=== PATIENT | female | born 1965 | race Caucasian/White ===

== ENCOUNTER 2017-09-26 12:56 | Emergency (ER) | payer MEDICARE, OTHER ==
--- NOTE | 2017-09-26 13:34 | RAD ---
PA AND LATERAL CHEST: History: Cough, shortness of breath. FINDINGS: Comparison made with exam of 02-02-14. The heart size is normal. The lungs are expanded. There is a small focal opacity in the right lower l bean. No pneumothoraces or pleural effusions are seen. Intraspinal leads are again noted . IMPRESSION: Probable right sided pneumonia. Follow up exam should be obtained after course of antibiotics. Code T POS: OTIS
[2017-09-26 13:45] LABS: #Basophils 0.1 thou/uL (0.0-0.2); #Eosinphils 0.2 thou/uL (0.0-0.7); #Lymphocytes 1.2 thou/uL (1.20-3.40); #Monocytes 0.5 thou/uL (0.11-0.59); #Neutrophils 6.5 thou/uL (1.40-6.50); %Basophils 0.9 % (0.0-1.0); %Eosinophils 2.2 % (0.0-10.0); %Lymphocytes 14.4 % (21.0-51.0); %Monocytes 6.1 % (0.0-10.0); %Neutrophils 76.4 % (42.0-75.0); Hemoglobin 14.7 g/dL (12.0-16.0); Mean Corpuscular HGB CONC 34.3 g/dL (32.0-36.0); Mean Corpuscular Hemoglobin 31.9 pg (27.0-31.0); Mean Corpuscular Volume 92.9 fl (81.0-99.0); Platelet Count 207 thou/uL (130-400); RBC Distribution Width 11.1 % (11.5-14.5); White Blood Cell (WBC) Count 8.5 thou/uL (4.8-10.8)
[2017-09-26] MEDS ORDERED: Ipratropium Bromide 2.5 ml Neb ONE (13:53)
[2017-09-26] MEDS ORDERED: Albuterol Sulfate 2.5 mg/0.5 ml Neb ONE (13:54)
[2017-09-26 14:00] LABS: ALT (SGPT) 23 U/L (8-55); AST (SGOT) 14 U/L (5-34); Albumin 4.1 g/dL (3.5-5.0); Alkaline Phosphatase 87 U/L (40-150); Anion Gap 13 mmol/L (10-20); BUN (Urea Nitrogen) 7 mg/dL (7.0-18.7); Bilirubin, Total 0.5 mg/dL (0.2-1.2); Calc. Creatinine Clearance 0 mL/min (70-130); Calcium 9.7 mg/dL (7.8-10.44); Carbon Dioxide 28 mmol/L (22-29); Chloride 103 mmol/L (98-107); Estimated GFR-MDRD 81; Globulin 3.1 g/dL (2.4-3.5); Glucose 159 mg/dL (70-105); Potassium 3.7 mmol/L (3.5-5.1); Protein, Total 7.2 g/dL (6.0-8.3); Sodium 140 mmol/L (136-145)
[2017-09-26] MEDS ORDERED: methylPREDNISolone Sod Succ/PF 125 MG/2 ML VIAL ONE (14:00)
[2017-09-26 14:03] LABS: CKMB 2.4 ng/mL (0-6.6); Troponin I Less than 0.010 ng/mL (< 0.028)
[2017-09-26] MEDS ORDERED: Azithromycin 250 MG TAB ONE (14:11)
[2017-09-26] MEDS ORDERED: cefTRIAXone\\ROCEPHIN 1 GM VIAL ONE (14:39)
[2017-09-26] MEDS ORDERED: Sodium Chloride 0.9% 100 ML ONE (14:41)
--- NOTE | 2017-11-03 15:48 | EKG ---
Test Reason : Blood Pressure : / mmHG Vent. Rate : 088 BPM Atrial Rate : 088 BPM P-R Int : 156 ms QRS Dur : 106 ms QT Int : 348 ms P-R-T Axes : 046 075 046 degrees QTc Int : 421 ms Normal sinus rhythm Incomplete right bundle branch block Borderline ECG Confirmed by YOMAIRA MONREAL D.O. ([id number]), staff editor ABNER BOYCE ([id number] on 11/03/2017 3:47:58 PM Referred By: Confirmed By:YOMAIRA MONREAL D.O.
== END 2017-09-26 16:00 | disposition home or self-care (01) ==
LOC: SCSER 12:56
DX: J18.9 Pneumonia, unspecified organism (principal); I10 Essential (primary) hypertension; F17.210 Nicotine dependence, cigarettes, uncomplicated
CPT/HCPCS: 36415; 71046; 80053; 82553; 83880; 84484; 85025; 93005; 94640; 96365; 96375; J0696; J2930; J7050; J7611; J7644

== ENCOUNTER 2017-10-04 14:10 | Outpatient (CLI) | payer MEDICARE, MEDICAID | END 2017-10-04 14:11 | disposition home or self-care (01) | LOC: BICMAMMO 14:10 | PROVIDERS: ATTEND Family Medicine | DX: Z12.31 Encounter for screening mammogram for malignant neoplasm of breast (principal); Z80.3 Family history of malignant neoplasm of breast | CPT/HCPCS: 77063; 77067 ==

== ENCOUNTER 2018-06-03 08:04 | Day surgery (SDC) | payer MEDICARE, MEDICAID ==
[2018-05-30 15:28] VITALS: BMI 39.9
[2018-06-03] MEDS ORDERED: Gabapentin 300 MG CAP PO SCH (08:30)
[2018-06-03] MEDS ORDERED: CEFAZOLIN 3 GM in Sodium Chloride 0.9% 100 ML IVPB SCH (08:30)
[2018-06-03] MEDS ORDERED: Famotidine/PF 20 mg/2ml Vial IVPB SCH (08:30)
[2018-06-03] MEDS ORDERED: Gabapentin 300 MG CAP ONE (08:49)
[2018-06-03] MEDS ORDERED: Famotidine/PF 20 mg/2ml Vial ONE (08:49)
[2018-06-03] MEDS ORDERED: Midazolam HCl 2 mg/2 ml Vial ONE (09:08)
[2018-06-03] MEDS ORDERED: Bupivacaine HCl 0.5%/Epinephrine 1:200,000/PF 30 ml Vial ONE ×2 (09:38→12:20)
[2018-06-03] MEDS ORDERED: Lidocaine 1% w/Epinephrine 1:100K 30 ML VIAL ONE (09:38)
[2018-06-03] MEDS ORDERED: Fentanyl 100 MCG/2 ML VIAL ONE ×4 (09:59→13:47)
[2018-06-03] MEDS ORDERED: Albuterol Sulfate 1.25 MG/3 ML NEB ONE (10:00)
[2018-06-03] MEDS ORDERED: Albuterol Sulfate 2.5 mg/3 ml Neb ONE (10:00)
[2018-06-03] MEDS ORDERED: Fluticasone Propionate Nasal Spray 16 gm Bottle NASAL PRN (10:02)
[2018-06-03] MEDS ORDERED: Albuterol Sulfate HFA (OR ONLY) ONE (10:12)
[2018-06-03] MEDS ORDERED: Ondansetron HCl/PF 4 MG/2 ML Vial IVP PRN ×2 (12:37→13:09)
[2018-06-03] MEDS ORDERED: HYDROmorphone 2 MG/ML VIAL SLOW IVP PRN (12:37)
[2018-06-03] MEDS ORDERED: Meperidine HCl/PF 25 MG/ML VIAL SLOW IVP PRN (12:37)
[2018-06-03] MEDS ORDERED: Promethazine HCl 25 MG/ML VIAL SLOW IVP PRN (12:37)
[2018-06-03] MEDS ORDERED: Promethazine HCl 25 MG/ML VIAL IM PRN ×2 (12:37→13:09)
[2018-06-03] MEDS ORDERED: oxyCODONE ER 20 MG TAB PO PRN (12:38)
[2018-06-03] MEDS ORDERED: HYDROcodone/Acetaminophen 10/325 mg Tablet PO PRN (12:38)
[2018-06-03] MEDS ORDERED: ALPRAZolam 1 MG TAB PO PRN (12:44)
[2018-06-03] MEDS ORDERED: Ropivacaine 0.2% 550 ML 550 ML NERVE BLCK SCH (12:54)
[2018-06-03] MEDS ORDERED: Acetaminophen 325 MG TAB PO PRN (13:09)
[2018-06-03] MEDS ORDERED: Zolpidem Tartrate 5 MG TAB PO PRN (13:09)
[2018-06-03] MEDS ORDERED: Simethicone Chewable 80 MG TAB PO PRN (13:09)
[2018-06-03] MEDS ORDERED: Morphine 4 MG/ML VIAL SLOW IVP PRN ×2 (13:09→16:51)
[2018-06-03] MEDS ORDERED: Bisacodyl 10 MG SUPP PR PRN (13:09)
[2018-06-03] MEDS ORDERED: diphenhydrAMINE 25 MG CAP PO PRN (13:09)
--- NOTE | 2018-06-03 14:24 | OP ---
DATE OF PROCEDURE: 06/03/2018 PREOPERATIVE DIAGNOSES: Cervical dysplasia with cervical intraepithelial neoplasia 2-3 with a history of a prior LEEP. POSTOPERATIVE DIAGNOSES: Cervical dysplasia with cervical intraepithelial neoplasia 2-3 with a history of a prior LEEP. PROCEDURE PERFORMED: Robotic assisted total laparoscopic hysterectomy with bilateral salpingo-oophorectomy. SURGEON: Nay Parekh D.O. BELLING MACHINE OPERATOR: Padmini Hassan M.D. COMPLICATIONS: None. ESTIMATED BLOOD LOSS: 100 mL. IV FLUIDS: 1600. URINE OUTPUT: 250 mL. FINDINGS: Normal appearing external genitalia, normal vaginal epithelium, normal appearing cervical epithelium with the exception of small erosive appearing area at 12 o'clock position, normal appearing uterus, fallopian tubes and ovaries bilaterally. INDICATIONS FOR THE PROCEDURE: Ms. Vizcarra is a 52-year-old G4, P3 who presented for consultation due to cervical dysplasia with ADRIANA 2-3 on colposcopy biopsy. The patient had a history of a prior LEEP and was counseled on treatment options including a repeat excisional procedure versus a hysterectomy. The patient very adamantly desired to have a hysterectomy. The patient does have comorbidities of obstructive sleep apnea, chronic tobacco use and COPD and obesity. She underwent a cardiac evaluation and received cardiac clearance. PROCEDURE IN DETAIL: The patient was brought to the operating room. She was placed under general anesthesia. The patient was placed in dorsal lithotomy position, her arms were tucked for robotic surgery. She was prepped and draped in a sterile fashion. An official timeout was performed and the patient received Ancef 3 gram dose. Single sided speculum was placed in the vagina. The anterior aspect of the cervix was grasped using single tooth tenaculum and the cervix was sequentially dilated using Brown dilators. The uterus was sounded to approximately 7 cm. A 6 cm length and 4 cm cup were used for the MAYRA manipulator. They were appropriately secured to the ectocervix. A Andrade catheter was placed. Gloves were exchanged and attention was turned to the abdominal portion. A supraumbilical incision was made using the scalpel and the Veress needle was inserted into the peritoneal cavity noting a normal pressure. The peritoneal cavity was insufflated using carbon dioxide. The patient was then placed in Trendelenburg position. The amount of Trendelenburg position was limited due to patient's obesity and respiratory status for appropriate ventilation. Once anesthesia was comfortable with the amount of Trendelenburg, the additional assistant professor of archaeology ports were placed. All were placed under direct visualization using local anesthetic. There were 2 right assistant professor of archaeology ports and 2 left assistant professor of archaeology ports. A third robotic arm was to be used for additional traction. The robot was then appropriately secured to the patient. The instruments were inserted. The hysterectomy was started on the left aspect. There were omental adhesions to the left ovary which were coagulated and transected. The left IP ligament was then identified, coagulated multiple times and transected. The broad ligament along the uteroovarian ligament was then transected using cautery towards the uterus. The left round ligament was then coagulated multiple times and transected allowing entrance into the broad ligament. The anterior leaf of the broad ligament was undermined and was transected to allow inferior flexion of the bladder on the left aspect. The left posterior peritoneum was undermined and transected towards the level of the uterosacral ligament. The left uterine vessels were further skeletonized. Attention was then turned over to the right aspect. The right ovary was elevated and the right IP ligament was identified and coagulated multiple times and transected. This is transected towards the uterus. The right round ligament was coagulated and transected allowing entry into the broad ligament on the right side. The anterior aspect of the broad ligament was undermined and transected to inferiorly reflect the bladder on the right aspect as well. The posterior leaf of the broad ligament was undermined and transected down towards the level of the uterosacral ligament on the right aspect skeletonized using the right uterine vessels. Skeletonization process was more difficult on the right side. However, it was able to be performed and hemostasis was achieved. The bladder was inferiorly reflected using both sharp and blunt dissection. The right uterine vessels were coagulated multiple times and then transected and the same was performed to the left aspect. The colpotomy was performed in a circumferential fashion and noting a blue manipulator cup and performed until the cervical and vaginal tissue were completely . The uterus, cervix, fallopian tubes, and ovaries were delivered vaginally. The pelvis was irrigated and cleared of all clot and debris. The vaginal cuff was closed in a running fashion using 1 Stratafix suture. The vaginal cuff was hemostatic after closure. Again, the pelvis was irrigated and cleared of all clot and debris. The ON-Q pump was then placed into the pelvis. The robotic instruments were removed and the robot was undocked from the patient. The patient was taken out of Trendelenburg position. Her abdomen was deflated and the trocars were removed. The 12 mm camera port was closed by closing the fascia using #0 Vicryl. All skin incisions were closed using 4-0 Monocryl and Dermabond. The patient tolerated the procedure well. There were no complications. All counts were correct x2. She will be transferred to PACU in stable condition. AMELIA
[2018-06-03] MEDS: Dextrose 5 %-0.45 % NaCl 1,000 ML IV SCH (17:01)
[2018-06-03] MEDS: Ibuprofen 800 MG TAB PO SCH ×2 (17:44→23:15)
[2018-06-03 17:53] VITALS: BP 171/82
[2018-06-03] MEDS ORDERED: HYDROcodone/Acetaminophen 10/325 mg Tablet PO SCH ×2 (18:00)
[2018-06-03] MEDS: HYDROcodone/Acetaminophen 10/325 mg Tablet PO SCH (18:52)
[2018-06-03] MEDS ORDERED: hydrALAZINE 10 MG TAB PO PRN (19:03)
[2018-06-03] MEDS ORDERED: Montelukast Sodium 10 mg Tablet PO SCH (21:00)
[2018-06-03] MEDS ORDERED: Amlodipine 5 MG TAB PO SCH (21:00)
[2018-06-03] MEDS ORDERED: Topiramate 100 MG TAB PO SCH (21:00)
[2018-06-04 01:08] VITALS: TEMP 98
[2018-06-04] MEDS: HYDROcodone/Acetaminophen 10/325 mg Tablet PO SCH ×2 (01:48→03:06)
[2018-06-04] MEDS: Dextrose 5 %-0.45 % NaCl 1,000 ML IV SCH ×2 (01:48→06:04)
[2018-06-04 05:52] LABS: #Monocytes 0.6 thou/uL (0.11-0.59); #Neutrophils 6.6 thou/uL (1.40-6.50); %Eosinophils 0.2 % (0.0-10.0); %Lymphocytes 12.2 % (21.0-51.0); %Monocytes 6.7 % (0.0-10.0); %Neutrophils 80.9 % (42.0-75.0); Hemoglobin 14.3 g/dL (12.0-16.0); Mean Corpuscular HGB CONC 34.5 g/dL (32.0-36.0); Mean Corpuscular Hemoglobin 32.1 pg (27.0-31.0); Mean Corpuscular Volume 92.9 fL (78.0-98.0); Mean Platelet Volume 7.3 fL (7.4-10.4); Platelet Count 183 thou/uL (130-400); RBC Distribution Width 12.1 % (11.5-14.5); Red Blood Cell (RBC) Count 4.44 mill/uL (4.20-5.40); White Blood Cell (WBC) Count 8.1 thou/uL (4.8-10.8)
[2018-06-04 05:58] LABS: Anion Gap 13 mmol/L (10-20); BUN (Urea Nitrogen) 10 mg/dL (7.0-18.7); Calc. Creatinine Clearance 146 mL/min (70-130); Calcium 9.1 mg/dL (7.8-10.44); Carbon Dioxide 24 mmol/L (22-29); Chloride 107 mmol/L (98-107); Estimated GFR-MDRD 77; Glucose 115 mg/dL (70-105); Potassium 4.1 mmol/L (3.5-5.1); Sodium 140 mmol/L (136-145)
[2018-06-04] MEDS: Ibuprofen 800 MG TAB PO SCH (06:04)
--- NOTE | 2018-06-04 11:22 | PRG ---
DATE OF SERVICE: 06/04/2018 HPI: Postoperative day #1, status post robotic-assisted total laparoscopic hysterectomy with a bilat eral salpingo-oophorectomy for history of cervical dysplasia with ADRIANA-2, status post LEEP. SUBJECTIVE: The patient reports [id number] pain. She is passing flatus, voiding without diffi culty, ambulating, and tolerating a regular diet. Her pain is controlled with her home medications, which she takes OxyContin and [place], prescribed by her primary physician for her chronic back pain. OBJECTIVE: VITAL SIGNS: Stable, her hypertension has improved after her pain has been controlled and she is les s anxious after surgery. GENERAL: In no acute distress. CARDIOVASCULAR: Regular rate and rhythm. RESPIRATORY: Unlabored. Clear to auscultation bilaterally. ABDOMEN: Soft, mild distention. Obese. Normal active bowel sounds x4. Incision is clean, dry, and intact with Dermabond, ON-Q pump appropriately secured in place. EXTREMITIES: No edema. Negative Homans'. LABORATORY DATA: Labs are appropriate for postop with normal hemoglobin and normal creatinine (pleas e see laboratory results). ASSESSMENT: Postoperative day #1, status post robot-assisted total laparoscopic hysterectomy with bi lateral salpingo-oophorectomy for cervical dysplasia. PLAN: The patient is meeting all requirements for discharge and will be discharged home today. She will resume her home pain medications as prescribed by her primary doctor and will have an ON-Q pain pump for her pain control.
--- NOTE | 2018-06-04 11:22 | DIS ---
DATE OF ADMISSION: 06/03/2018 DATE OF DISCHARGE: 06/04/2018 ADMISSION AND DISCHARGE PHYSICIAN: Nay Parekh DO ADMISSION DIAGNOSES: Pain control, status post robotic-assisted total laparoscopic hysterectomy with bilateral salpingo-oophorectomy due to history of chronic pain. DISCHARGE DIAGNOSES: Pain control, status post robotic-assisted total laparoscopic hysterectomy wi th bilateral salpingo-oophorectomy due to history of chronic pain. BRIEF HOSPITAL COURSE: Ms. Manda Vizcarra is a 52-year-old G4, P3 who has a history of cervical dysplasia, most recently with ADRIANA 2/3, who had a previous LEEP. She was counseled on treatment opti ons and elected to have a hysterectomy for treatment of her cervical dysplasia. The patient underwen t a robotic-assisted total laparoscopic hysterectomy with bilateral salpingo-oophorectomy, and she is now postoperative day #1. She is meeting all requirements for discharge. The patient is ambulating , voiding, passing flatus and her pain is controlled with her chronic pain medication regimen. She d id have hypertension yesterday evening, which was improved with a p.r.n. dose of hydralazine and decr ease anxiety after her family members left yesterday evening. MEDICATIONS: Resume chronic pain medications of [place] and OxyContin and continue home medications. DRAINS: ON-Q pain pump. DIET: Regular. ACTIVITY RESTRICTIONS: Pelvic rest, no heavy lifting, pulling or pushing x6 weeks. FOLLOWUP: Follow up in 2 weeks.
== END 2018-06-04 09:03 | disposition home or self-care (01) ==
LOC: SDC 08:04 → 3SE 14:05 → SDC 06-04 09:03
PROVIDERS: ATTEND Obstetrics & Gynecology
PROC: 0UT94ZZ Resection of Uterus, Percutaneous Endoscopic Approach (ICD-10-PCS; principal; 2018-06-03)
PROC: 0UT24ZZ Resection of Bilateral Ovaries, Percutaneous Endoscopic Approach (ICD-10-PCS; 2018-06-03)
PROC: 0UT74ZZ Resection of Bilateral Fallopian Tubes, Percutaneous Endoscopic Approach (ICD-10-PCS; 2018-06-03)
DX: D06.9 Carcinoma in situ of cervix, unspecified (principal); N80.0 Endometriosis of uterus; N83.8 Other noninflammatory disorders of ovary, fallopian tube and broad ligament; G47.33 Obstructive sleep apnea (adult) (pediatric); J44.9 Chronic obstructive pulmonary disease, unspecified; F17.210 Nicotine dependence, cigarettes, uncomplicated; I10 Essential (primary) hypertension; E66.9 Obesity, unspecified; Z68.39 Body mass index [BMI] 39.0-39.9, adult; Z79.899 Other long term (current) drug therapy; Z88.8 Allergy status to other drugs, medicaments and biological substances
CPT/HCPCS: 58571; 80048; 85025; 88307; 96374; A4306; 36415; 96375; 96376; J0131; J0670; J0690; J2001; J2250; J2270; J2405; J2795; J3010; J7050; J7611; S0028

== ENCOUNTER 2018-06-06 18:34 | Emergency (ER) | payer MEDICARE, MEDICAID ==
[~2018-06-06 18:34] MED LIST: ISOVUE-370 76%-LOCM 1 ML ONE
[2018-06-06] MEDS ORDERED: Lorazepam 2 MG/ML VIAL ONE (19:59)
[2018-06-06 20:04] LABS: #Basophils 0.1 thou/uL (0.0-0.2); #Eosinphils 0.2 thou/uL (0.0-0.7); #Lymphocytes 1.4 thou/uL (1.20-3.40); #Monocytes 0.4 thou/uL (0.11-0.59); #Neutrophils 4.5 thou/uL (1.40-6.50); %Basophils 0.9 % (0.0-1.0); %Eosinophils 3.3 % (0.0-10.0); %Lymphocytes 21.6 % (21.0-51.0); %Monocytes 6.1 % (0.0-10.0); %Neutrophils 68.1 % (42.0-75.0); Hemoglobin 14.6 g/dL (12.0-16.0); Mean Corpuscular HGB CONC 35.5 g/dL (32.0-36.0); Mean Corpuscular Hemoglobin 32.8 pg (27.0-31.0); Mean Corpuscular Volume 92.3 fL (78.0-98.0); Mean Platelet Volume 7.5 fL (7.4-10.4); Platelet Count 192 thou/uL (130-400); RBC Distribution Width 12.3 % (11.5-14.5); Red Blood Cell (RBC) Count 4.44 mill/uL (4.20-5.40); White Blood Cell (WBC) Count 6.6 thou/uL (4.8-10.8)
[2018-06-06 20:24] LABS: ALT (SGPT) 51 U/L (8-55); AST (SGOT) 27 U/L (5-34); Albumin 4.3 g/dL (3.5-5.0); Alkaline Phosphatase 72 U/L (40-150); Anion Gap 13 mmol/L (10-20); BUN (Urea Nitrogen) 14 mg/dL (7.0-18.7); Bilirubin, Total 0.7 mg/dL (0.2-1.2); Calc. Creatinine Clearance 0 mL/min (70-130); Calcium 9.1 mg/dL (7.8-10.44); Carbon Dioxide 23 mmol/L (22-29); Chloride 105 mmol/L (98-107); Estimated GFR-MDRD 79; Glucose 105 mg/dL (70-105); Potassium 4.2 mmol/L (3.5-5.1); Protein, Total 7.3 g/dL (6.0-8.3); Sodium 137 mmol/L (136-145)
--- NOTE | 2018-06-06 20:45 | CT ---
CT OF THE NECK WITH CONTRAST CT OF THE CHEST WITH CONTRAST 06/06/18 COMPARISON: None. HISTORY: Swelling in the left neck which was not previously noted. TECHNIQUE: Multiple contiguous axial images were obtained in a CT of the neck and chest with contrast. Coronal r eformats were performed. FINDINGS: No pulmonary nodules or infiltrates are seen in the lungs. No pneumothorax or pleural effusions are s een. The heart is normal in size without focal cardiac abnormality. No hilar or mediastinal lymphadenopath y are seen. No mucosal abnormality is seen in the oropharynx, hypopharynx, or subglottic regions. No cervical ander nopathy is seen. The salivary glands are symmetric without focal abnormality. The thyroid is unremark able. No obvious fluid collection or mass is seen in the neck. The patient is status post cholecystectomy. The visualized subdiaphragmatic structures are unremarkab le. The chest wall soft tissues are unremarkable. IMPRESSION: No significant abnormality identified. POS: [facility]
== END 2018-06-06 21:35 | disposition home or self-care (01) ==
LOC: ERS 18:34
DX: R22.1 Localized swelling, mass and lump, neck (principal); I10 Essential (primary) hypertension; F41.9 Anxiety disorder, unspecified; K21.9 Gastro-esophageal reflux disease without esophagitis; Z79.899 Other long term (current) drug therapy
CPT/HCPCS: 36415; 71260; 80053; 85025; 96361; 96374; J2060

== ENCOUNTER 2018-07-13 18:00 | Emergency (ER) | payer MEDICARE | END 2018-07-13 18:34 | disposition home or self-care (01) | LOC: SCSER 18:00 | DX: T81.49XA Infection following a procedure, other surgical site, initial encounter (principal); I10 Essential (primary) hypertension; K21.9 Gastro-esophageal reflux disease without esophagitis; J44.9 Chronic obstructive pulmonary disease, unspecified; F17.210 Nicotine dependence, cigarettes, uncomplicated; Z79.899 Other long term (current) drug therapy; F41.9 Anxiety disorder, unspecified | CPT/HCPCS: 99283 ==

== ENCOUNTER 2018-12-02 14:02 | Emergency (ER) | payer MEDICARE, OTHER | END 2018-12-02 16:11 | disposition home or self-care (01) | LOC: SCSER 14:02 | DX: J02.9 Acute pharyngitis, unspecified (principal); I10 Essential (primary) hypertension; K21.9 Gastro-esophageal reflux disease without esophagitis; J44.9 Chronic obstructive pulmonary disease, unspecified; F17.210 Nicotine dependence, cigarettes, uncomplicated | CPT/HCPCS: 87081; 87430; 87804; 99283 ==

== ENCOUNTER 2019-01-06 01:16 | Emergency (ER) | payer MEDICARE, OTHER ==
[2019-01-06 01:49] LABS: Bilirubin Negative (Negative); Blood, Urine Negative (Negative); Clarity CLEAR (Clear); Glucose, Urine (Dipstick) Negative (Negative); Leukocyte Negative (Negative); Nitrite Negative (Negative); Protein, Urine (Dipstick) Negative (Neg-Trace); Specific Gravity, Urine 1.019 (1.002-1.036); Urobilinogen 0.2 mg/dL (0.2-1.0); pH, Urine 5.5 (5.0-9.0)
[2019-01-06 02:24] LABS: #Basophils 0.1 thou/uL (0.0-0.2); #Eosinphils 0.2 thou/uL (0.0-0.7); #Lymphocytes 2.4 thou/uL (1.20-3.40); #Monocytes 0.4 thou/uL (0.11-0.59); #Neutrophils 3.7 thou/uL (1.40-6.50); %Basophils 1.3 % (0.0-1.0); %Eosinophils 2.6 % (0.0-10.0); %Lymphocytes 35.6 % (21.0-51.0); %Monocytes 6.2 % (0.0-10.0); %Neutrophils 54.4 % (42.0-75.0); Hemoglobin 14.8 g/dL (12.0-16.0); Mean Corpuscular HGB CONC 34.6 g/dL (32.0-36.0); Mean Corpuscular Hemoglobin 31.4 pg (27.0-31.0); Mean Corpuscular Volume 90.8 fL (78.0-98.0); Mean Platelet Volume 7.2 fL (7.4-10.4); Platelet Count 170 thou/uL (130-400); RBC Distribution Width 12.3 % (11.5-14.5); Red Blood Cell (RBC) Count 4.72 mill/uL (4.20-5.40); White Blood Cell (WBC) Count 6.7 thou/uL (4.8-10.8)
[2019-01-06 02:43] LABS: ALT (SGPT) 17 U/L (8-55); AST (SGOT) 13 U/L (5-34); Albumin 4.4 g/dL (3.5-5.0); Alkaline Phosphatase 75 U/L (40-150); Anion Gap 11 mmol/L (10-20); BUN (Urea Nitrogen) 10 mg/dL (9.8-20.1); Bilirubin, Total 0.6 mg/dL (0.2-1.2); Calc. Creatinine Clearance 0 mL/min (70-130); Calcium 9.5 mg/dL (7.8-10.44); Carbon Dioxide 27 mmol/L (22-29); Chloride 106 mmol/L (98-107); Estimated GFR-MDRD 80; Globulin 2.7 g/dL (2.4-3.5); Glucose 99 mg/dL (70-105); Potassium 3.8 mmol/L (3.5-5.1); Protein, Total 7.1 g/dL (6.0-8.3); Sodium 140 mmol/L (136-145)
[2019-01-06 03:01] LABS: Thyroid Stimulating Hormone 2.6008 uIU/mL (0.35-4.94)
[2019-01-06 05:30] LABS: Free T4 (Free Thyroxine) 1.02 ng/dL (0.70-1.48)
--- NOTE | 2019-01-06 07:40 | RAD ---
EXAM: Single view of the chest HISTORY: chest pain COMPARISON: 05/14/2017 FINDINGS: Single view of the chest shows a normal sized cardiomediastinal silhouette. There is no hermelindo dence of consolidation, mass, or pleural effusion. The bones are unremarkable. IMPRESSION: No evidence of acute cardiopulmonary disease
== END 2019-01-06 04:15 | disposition left against medical advice (07) ==
LOC: ERS 01:16
DX: R22.1 Localized swelling, mass and lump, neck (principal); E78.5 Hyperlipidemia, unspecified; I10 Essential (primary) hypertension; K21.9 Gastro-esophageal reflux disease without esophagitis; J44.9 Chronic obstructive pulmonary disease, unspecified; F41.9 Anxiety disorder, unspecified; F17.210 Nicotine dependence, cigarettes, uncomplicated
CPT/HCPCS: 36415; 71045; 80053; 81003; 84439; 84443; 85025; 99284

== ENCOUNTER 2019-01-16 21:47 | Emergency (ER) | payer MEDICARE, OTHER ==
[2019-01-16 22:19] LABS: Bilirubin Negative (Negative); Blood, Urine Negative (Negative); Clarity CLEAR (Clear); Glucose, Urine (Dipstick) Negative (Negative); Leukocyte Negative (Negative); Nitrite Negative (Negative); Protein, Urine (Dipstick) Negative (Neg-Trace); Specific Gravity, Urine 1.006 (1.002-1.036); Urobilinogen 0.2 mg/dL (0.2-1.0); pH, Urine 6.5 (5.0-9.0)
[2019-01-16 23:30] LABS: #Basophils 0.1 thou/uL (0.0-0.2); #Eosinphils 0.1 thou/uL (0.0-0.7); #Lymphocytes 1.8 thou/uL (1.20-3.40); #Monocytes 0.4 thou/uL (0.11-0.59); #Neutrophils 3.9 thou/uL (1.40-6.50); %Eosinophils 1.9 % (0.0-10.0); %Lymphocytes 28.1 % (21.0-51.0); %Monocytes 6.3 % (0.0-10.0); %Neutrophils 62.7 % (42.0-75.0); Hemoglobin 14.6 g/dL (12.0-16.0); Mean Corpuscular HGB CONC 35.3 g/dL (32.0-36.0); Mean Corpuscular Hemoglobin 32.1 pg (27.0-31.0); Mean Corpuscular Volume 90.8 fL (78.0-98.0); Mean Platelet Volume 7.4 fL (7.4-10.4); Platelet Count 162 thou/uL (130-400); RBC Distribution Width 12.3 % (11.5-14.5); Red Blood Cell (RBC) Count 4.55 mill/uL (4.20-5.40); White Blood Cell (WBC) Count 6.2 thou/uL (4.8-10.8)
--- NOTE | 2019-01-16 23:35 | RAD ---
Portable frontal chest radiograph: 01/16/2019 COMPARISON: 01/06/2019 HISTORY: Pleuritic chest pain FINDINGS: Lungs are clear. Heart and mediastinal contours appear within normal limits. Dorsal column stimulator leads overlie mid thoracic spine. IMPRESSION: No acute findings.
[2019-01-16 23:49] LABS: ALT (SGPT) 18 U/L (8-55); AST (SGOT) 15 U/L (5-34); Albumin 4.1 g/dL (3.5-5.0); Alkaline Phosphatase 73 U/L (40-150); Anion Gap 14 mmol/L (10-20); BUN (Urea Nitrogen) 12 mg/dL (9.8-20.1); Bilirubin, Total 0.6 mg/dL (0.2-1.2); Calc. Creatinine Clearance 0 mL/min (70-130); Calcium 9.3 mg/dL (7.8-10.44); Carbon Dioxide 25 mmol/L (22-29); Chloride 103 mmol/L (98-107); Estimated GFR-MDRD 81; Globulin 2.5 g/dL (2.4-3.5); Glucose 137 mg/dL (70-105); Potassium 3.4 mmol/L (3.5-5.1); Protein, Total 6.6 g/dL (6.0-8.3); Sodium 139 mmol/L (136-145)
--- NOTE | 2019-01-16 23:52 | CT ---
Head CT without contrast 01/16/2019: COMPARISON: 12/18/2004 HISTORY: Headache TECHNIQUE: Axial CT imaging at 5 mm intervals from vertex through skull base without contrast FINDINGS: Imaged paranasal sinuses and mastoid air cells well-aerated. No displaced calvarial fractur e, intracranial hemorrhage, midline shift, or mass effect. IMPRESSION: No intracranial hemorrhage or acute osseous abnormality.
== END 2019-01-17 00:20 | disposition home or self-care (01) ==
LOC: ERS 21:47
DX: R51 Headache (principal); E78.5 Hyperlipidemia, unspecified; I10 Essential (primary) hypertension; K21.9 Gastro-esophageal reflux disease without esophagitis; J44.9 Chronic obstructive pulmonary disease, unspecified; F17.210 Nicotine dependence, cigarettes, uncomplicated
CPT/HCPCS: 36415; 70450; 71045; 80053; 81003; 85025; 93005

== ENCOUNTER 2019-01-24 14:07 | Outpatient (CLI) | payer MEDICARE, OTHER ==
--- NOTE | 2019-01-24 15:07 | CT ---
Contrast-enhanced CT images soft tissue neck. HISTORY: Left neck mass. No evidence of neck masses or lesions seen. No significant evidence of lymphadenopathy seen. Bilateral palatine tonsil enlargement is seen. These may be reactive. No definite evidence of neck masses seen. No evidence of parotid or carotid space masses seen. The area in the left neck where the lesion is marked shows no evidence of adjacent masses or lesions. IMPRESSION: Normal contrast-enhanced CT of the soft tissue neck.
[2019-01-24] MEDS ORDERED: Iopamidol 370 76% 100 ML VIAL ONE (16:43)
== END 2019-01-24 14:08 | disposition home or self-care (01) ==
LOC: CT 14:07
PROVIDERS: ATTEND Family Medicine
DX: R22.1 Localized swelling, mass and lump, neck (principal)
CPT/HCPCS: 70491; Q9967

== ENCOUNTER 2019-01-24 14:53 | Outpatient (CLI) | payer MEDICARE, OTHER ==
--- NOTE | 2019-01-24 15:51 | MMO ---
Bilateral MAMMO Bilat Screen DDI+FERNY. CLINICAL HISTORY: Patient is 53 years old and is seen for screening. The patient has the following family history of breast cancer: mother, at age 25, AT 40 and maternal aunt. The patient has no personal history of cancer. VIEWS: The views performed were: bilateral craniocaudal; bilateral craniocaudal with tomosynthesis; and bilateral mediolateral oblique with tomosynthesis. FILMS COMPARED: The present examination has been compared to prior imaging studies performed at [facility] on 10/04/2017, and at [facility] on 09/27/2010. MAMMOGRAM FINDINGS: The breasts are almost entirely fat. Benign calcifications are noted bilaterally. There are no suspicious masses, suspicious calcifications, or new areas of architectural distortion. IMPRESSION: THERE IS NO MAMMOGRAPHIC EVIDENCE OF MALIGNANCY. A ROUTINE FOLLOW-UP MAMMOGRAM IN 1 YEAR IS RECOMMENDED. THE RESULTS OF THIS EXAM WERE SENT TO THE PATIENT. ACR BI-RADS Category 2 - Benign finding MAMMOGRAPHY NOTE: 1. A negative mammogram report should not delay a biopsy if a dominant of clinically suspicious mass is present. 2. Approximately 10% to 15% of breast cancers are not detected by mammography. 3. Adenosis and dense breasts may obscure an underlying neoplasm.
== END 2019-01-24 14:54 | disposition home or self-care (01) ==
LOC: BICMAMMO 14:53
PROVIDERS: ATTEND Family Medicine
DX: Z12.31 Encounter for screening mammogram for malignant neoplasm of breast (principal); Z80.3 Family history of malignant neoplasm of breast
CPT/HCPCS: 77063; 77067

== ENCOUNTER 2019-03-13 11:00 | Emergency (ER) | payer MEDICARE, OTHER | END 2019-03-13 12:56 | disposition home or self-care (01) | LOC: ERS 11:00 | DX: R22.1 Localized swelling, mass and lump, neck (principal); M54.2 Cervicalgia; E78.5 Hyperlipidemia, unspecified; I10 Essential (primary) hypertension; J44.9 Chronic obstructive pulmonary disease, unspecified; K21.9 Gastro-esophageal reflux disease without esophagitis; F31.9 Bipolar disorder, unspecified; F41.9 Anxiety disorder, unspecified; F17.210 Nicotine dependence, cigarettes, uncomplicated; Z79.899 Other long term (current) drug therapy | CPT/HCPCS: 99283 ==

== ENCOUNTER 2019-04-13 14:50 | Emergency (ER) | payer MEDICARE, OTHER | END 2019-04-13 15:32 | disposition home or self-care (01) | LOC: SCSER 14:50 → EDSTATUS 14:51 → SCSER 15:32 | DX: J02.9 Acute pharyngitis, unspecified (principal); I10 Essential (primary) hypertension; J44.9 Chronic obstructive pulmonary disease, unspecified; F17.210 Nicotine dependence, cigarettes, uncomplicated | CPT/HCPCS: 87081; 87430; 99283 ==

== ENCOUNTER 2019-09-03 08:17 | Emergency (ER) | payer MEDICARE, OTHER ==
[2019-09-03] MEDS ORDERED: HYDROcodone/Acetaminophen 5/325 mg Tablet ONE (09:24)
[2019-09-03] MEDS ORDERED: Ondansetron ODT 4 MG TAB ONE (09:24)
--- NOTE | 2019-09-03 09:36 | CT ---
CT Brain WO Con History: Altered metal status Comparison: CT brain January 16, 2019 Findings: No acute hemorrhage or infarct. No midline shift or mass effect. Ventricular size and extra -axial CSF spaces are normal. Calvarium is intact. Paranasal sinuses and mastoids are clear. Impression: No acute intracranial abnormality. No significant change.
== END 2019-09-03 12:00 | disposition home or self-care (01) ==
LOC: ERS 08:17
DX: S00.93XA Contusion of unspecified part of head, initial encounter (principal); I10 Essential (primary) hypertension; H92.01 Otalgia, right ear; E78.00 Pure hypercholesterolemia, unspecified; J44.9 Chronic obstructive pulmonary disease, unspecified; F31.9 Bipolar disorder, unspecified; F41.9 Anxiety disorder, unspecified; F17.210 Nicotine dependence, cigarettes, uncomplicated; W22.8XXA Striking against or struck by other objects, initial encounter
CPT/HCPCS: 70450; Q0162

== ENCOUNTER 2019-09-13 21:43 | Observation (INO) | payer MEDICARE, MEDICAID ==
[2019-09-13 22:06] LABS: #Basophils 0.1 thou/uL (0.0-0.2); #Eosinphils 0.1 thou/uL (0.0-0.7); #Lymphocytes 2.4 thou/uL (1.20-3.40); #Monocytes 0.5 thou/uL (0.11-0.59); #Neutrophils 4.1 thou/uL (1.40-6.50); %Basophils 0.8 % (0.0-1.0); %Eosinophils 1.8 % (0.0-10.0); %Lymphocytes 32.9 % (21.0-51.0); %Monocytes 7.5 % (0.0-10.0); Hemoglobin 15.1 g/dL (12.0-16.0); Mean Corpuscular HGB CONC 35.7 g/dL (32.0-36.0); Mean Corpuscular Volume 89.5 fL (78.0-98.0); Platelet Count 202 thou/uL (130-400); RBC Distribution Width 12.1 % (11.5-14.5); Red Blood Cell (RBC) Count 4.74 mill/uL (4.20-5.40); White Blood Cell (WBC) Count 7.2 thou/uL (4.8-10.8)
[2019-09-13 22:12] LABS: INR-International Normal Ratio 0.9; PTT 26.5 SEC (22.9-36.1); Prothrombin Time 12.6 SEC (12.0-14.7)
--- NOTE | 2019-09-13 22:19 | RAD ---
XR Chest 1 View Portable HISTORY: Chest pain COMPARISON: 01/16/2019 study. FINDINGS: Heart size and mediastinum are within normal limits. The lungs are clear of infiltrates. IMPRESSION: No active intrathoracic disease. Stable chest.
[2019-09-13] MEDS ORDERED: Aspirin Chewable 81 MG TAB ONE (22:23)
[2019-09-13 22:27] LABS: ALT (SGPT) 19 U/L (8-55); AST (SGOT) 16 U/L (5-34); Albumin 4.4 g/dL (3.5-5.0); Alkaline Phosphatase 86 U/L (40-110); Anion Gap 13 mmol/L (10-20); BUN (Urea Nitrogen) 8 mg/dL (9.8-20.1); Bilirubin, Total 0.6 mg/dL (0.2-1.2); CK (CPK) 118 U/L (29-168); Calc. Creatinine Clearance 0 mL/min (70-130); Calcium 9.6 mg/dL (7.8-10.44); Carbon Dioxide 28 mmol/L (22-29); Chloride 103 mmol/L (98-107); Estimated GFR-MDRD 65; Globulin 2.7 g/dL (2.4-3.5); Glucose 138 mg/dL (70-105); Lipase 20 U/L (8-78); Magnesium 1.7 mg/dL (1.6-2.6); Potassium 3.4 mmol/L (3.5-5.1); Protein, Total 7.1 g/dL (6.0-8.3); Sodium 141 mmol/L (136-145)
[2019-09-13] MEDS ORDERED: ALPRAZolam 0.25 MG TAB ONE (23:39)
--- NOTE | 2019-09-13 23:59 | PDOC.FPRHP ---
- History of Present Illness Chief Complaint: Palpitations History of Present Illness: 54yo female presented to the ED tonight w/ complaint of palpitations. Pt stated that about 1 hour [facility] she was sitting around doing nothing when she suddenly developed palpitations in her chest. She states that this progressed to the point that she was able to hear her heart beating in her ear. Pt states she started to become anxious and became very nauseated but did not vomit. She became very concerned so came to be evaluated. By the time she arrived pt states that her sx had essentially resolved. Pt notes having right sided ear pain intermittently for a week. She was evaluated 1 week ago in the ED but states that since then she felt a pop in her ear last week and it started draining fluid. She states the fluid has stopped but she continues to have intermittent pain. Pt is a smoker, obese, has positive fmhx of CAD, and pmhx of HTN, HLD. Pt believes she had a stress test done a little over a year - she thought maybe it was here but there is no records of this. When she was told there were no records she stated that she doesn't really remember where or when she had it done. - Allergies/Adverse Reactions Allergies Allergy/AdvReac Type Severity Reaction Status Date / Time Mxhsnyq-Uka-Owf Reductase Allergy Verified 09/14/19 01:36 Inhibitor - Home Medications Medication Instructions Recorded Confirmed Type ALPRAZolam 2 tab PO PRN PRN 05/30/18 09/14/19 History Albuterol Sulfate [Proair HFA] 1 - 2 puff INH Q4HR PRN 05/30/18 09/14/19 History Amlodipine [Norvasc] 5 mg PO HS 05/30/18 09/14/19 History HYDROcodone/Acetaminophen 1 each PO Q6HR PRN 05/30/18 09/14/19 History [Hydrocodone-Acetamin 10-325 mg] Ipratropium/Albuterol Sulfate 3 ml NEB QID PRN 05/30/18 09/14/19 History [DuoNeb] Montelukast Sodium [Singulair] 10 mg PO QPM /03/1109/14/19 History Sertraline HCl 100 mg PO HS 05/30/18 09/14/19 History Topiramate [Topamax] 200 mg PO HS 05/30/18 09/14/19 History Amoxicillin/Potassium Clav 875 mg PO Q12HR 5 Days #9 tab 09/14/19 Rx [Augmentin] Aspirin [Ecotrin Low Strength] 81 mg PO DAILY 30 Days #30 tab 09/14/19 Rx Fenofibrate Nanocrystallized 130 mg PO DAILY 30 Days #30 tab 09/14/19 Rx [Tricor] Losartan [Cozaar] 50 mg PO HS 09/14/19 09/14/19 History - History PMHx: Anxiety, HTN, COPD, HLD PSHx: Back surgery x2 FHx: Significant family hx of CAD Social: 1-1.5 ppd smoker for >30 years, denies any alcohol or illicit drug use - Review of Systems General: denies: fever/chills, weight/appetite/sleep changes Eyes: denies: vision changes, other ENT: denies: nasal congestion, rhinorrhea Respiratory: reports: shortness of breath. denies: cough Cardiovascular: reports: palpitation. denies: chest pain, edema Gastrointestinal: reports: nausea. denies: vomiting, diarrhea, abdominal pain Genitourinary: denies: incontinence, polyuria Skin: denies: rashes, lesions Musculoskeletal: denies: pain, tenderness Neurological: denies: numbness, syncope, seizure, weakness Psychological: reports: anxiety. denies: depression, other - Vital signs BP: 140/81, Pulse: 77, Resp: 17, Temp: 98.2 (Oral), Pain: 0, O2 sat: 96 on ( Room Air), Wt: 111kg - Physical Exam Constitutional: NAD, awake, alert and oriented, well developed -Constitutional: Morbidly obese HEENT: normocephalic and atraumatic, EOMI, grossly normal vision, grossly normal hearing, MMM -HEENT: right TM was erythematous, non bulging, small area at 7-9 o'clock appeared to be healing scab Neck: supple, FROM Heart: RRR, normal S1/S2, no murmurs/rubs/gallops, pulses present, no edema Lungs: CTAB, no respiratory distress, good air movement, no rales/rhonchi, no wheezing Abdomen: soft, non-tender, bowel sounds present Musculoskeletal: normal structure, normal tone Neurological: no focal deficit Skin: no rash/lesions, good turgor, capillary refill <2 seconds Heme/Lymphatic: no unusual bruising or bleeding, no purpura, no petechia Psychiatric: intact recent and remote memory -Psychiatric: pt appeared anxious FMR H&P: Results - Labs Result Diagrams: 09/13/19 21:54 09/13/19 21:54 Lab results: WBC 7.2 thou/uL (4.8-10.8) 09/13/19 21:54 Hgb 15.1 g/dL (12.0-16.0) 09/13/19 21:54 Hct 42.4 % (36.0-47.0) 09/13/19 21:54 MCV 89.5 fL (78.0-98.0) 09/13/19 21:54 Plt Count 202 thou/uL (130-400) 09/13/19 21:54 Neutrophils % 57.0 % (42.0-75.0) 09/13/19 21:54 Sodium 141 mmol/L (136-145) 09/13/19 21:54 Potassium 3.4 mmol/L (3.5-5.1) L 09/13/19 21:54 Chloride 103 mmol/L (98-107) 09/13/19 21:54 Carbon Dioxide 28 mmol/L (22-29) 09/13/19 21:54 BUN 8 mg/dL (9.8-20.1) L 09/13/19 21:54 Creatinine 0.91 mg/dL (0.6-1.1) 09/13/19 21:54 Glucose 138 mg/dL (70-105) H 09/13/19 21:54 Calcium 9.6 mg/dL (7.8-10.44) 09/13/19 21:54 Total Bilirubin 0.6 mg/dL (0.2-1.2) 09/13/19 21:54 AST 16 U/L (5-34) 09/13/19 21:54 ALT 19 U/L (8-55) 09/13/19 21:54 Alkaline Phosphatase 86 U/L (40-110) 09/13/19 21:54 Creatine Kinase 118 U/L (29-168) 09/13/19 21:54 B-Natriuretic Peptide Less than 10.0 pg/mL (0-100) 09/13/19 21:54 Serum Total Protein 7.1 g/dL (6.0-8.3) 09/13/19 21:54 Albumin 4.4 g/dL (3.5-5.0) 09/13/19 21:54 Lipase 20 U/L (8-78) 09/13/19 21:54 - EKG Interpretation EKG: Rate (beats per minute): 87, Conduction with, incomplete right bundle branch block, [place] normal, QRS duration 92 ms. QT/QTc 368/442 ms - Radiology Interpretation Chest x-ray Status: report reviewed by me (No active intrathoracic process) FMR H&P: A/P - Problem List (1) Atypical chest pain Current Visit: Yes Status: Acute Code(s): R07.89 - OTHER CHEST PAIN (2) HTN (hypertension) Current Visit: Yes Status: Acute Code(s): I10 - ESSENTIAL (PRIMARY) HYPERTENSION (3) Anxiety Current Visit: Yes Status: Acute Code(s): F41.9 - ANXIETY DISORDER, UNSPECIFIED (4) HLD (hyperlipidemia) Current Visit: Yes Status: Acute Code(s): E78.5 - HYPERLIPIDEMIA, UNSPECIFIED (5) Obesity Current Visit: Yes Status: Acute Code(s): E66.9 - OBESITY, UNSPECIFIED (6) Otitis media Current Visit: Yes Status: Acute Code(s): H66.90 - OTITIS MEDIA, UNSPECIFIED , UNSPECIFIED EAR (7) COPD (chronic obstructive pulmonary disease) Current Visit: Yes Status: Acute - Plan Atypical Chest Pain - ACS vs Anxiety - Palpitations w/ associated nausea and SOB - CXR, EKG and initial troponin negative - Trend trops - Nuclear stress and echo ordered - Currently asx - Prn nitro - HEART score: 5 Otitis Media - erythematous TM w/ hx of drainage - Augmentin x 5 days Chronic Medical Problems -------- Anxiety - Continue home sertraline and prn alprazolam HTN - Continue home amlodipine and losartan COPD - Continue home inhalers prn and singulair VTE: Lovenox Diet: NPO for stress Code: Full Dispo: Admit to tele obs for ACS rule out. ELOS <48hr PCP: Dr. Gonzalez FMR H&P: Upper Level - Pertinent history 54 yo F w/ PMH of obesity, anxiety, htn, hld, copd presents for acute onset rapid heart rate with associated diaphoresis. Pt also reports. Pt reports she had mild left sided chest pain prior to arrival to ed that has since resolved. She has had a cardiac stress a little over one year ago prior to pre-surgical clearence which was negative. Also rpeorts feeling like her head is pounding in her rt ear. She has had pain in rt ear since she hist it on car door a couple weeks ago. She was evaluated in ed one week ago for ear pain and sent home without any medication. She then experienced a pop and fluid and purulent drainage came from rt ear with relief of pain. She has since had intermittent rt ear pain. Otherwise no other complaints. - Pertinent findings ROS: As above PE: Gen: NAD, Obese HEENT: PERRLA, EOMI, NCAT, Rt tm erythematous with bulging and dried blood approx 7-9ooclock on tm which appears to be possible healing from distant perforation, no perforation noted on exam. Left tm normal without erythema or bulging CV: RRR No MRG Resp: CTA Bl no WRR Ext: No clubbing cyanosis or edema Neuro: No focal deficit Psych: alert and interactive, anxious apearing - Plan Date/Time: 09/13/19 1475 I, Agusto Garcia DO, have evaluated this patient and agree with findings/ plan as outlined by international marketing specialist resident. Pertinent changes/additions are listed here. 1) Atypical chest pain - heart score 5 - stress >1 yr ago, repeat - admit tele obs , trend trops 2) Chronic medical conditions as above - cont home medications Dispo: Stable, admit tele obs for atypical chest pain and r/o acs. PCP: Carlos Addendum - Attending - Attending Attestation Date/Time: 09/14/19 [id number] I personally evaluated the patient and discussed the management with Dr. Garner. I agree with the History, Examination, Assessment and Plan documented above with any addition or exceptions noted below. The patient presents with palpitations and hearing her heartbeat loudly in her ear. She also has an ear infection. She noted sweats when this occurred yesterday. Today she is feeling better. Will get stress test and echo to further evaluate. She is being monitored on telemetry.
[2019-09-14] MEDS ORDERED: Acetaminophen 325 MG TAB PO PRN (01:15)
[2019-09-14] MEDS ORDERED: Nitroglycerin 0.4 MG TAB (25 Tab Bottle) PO PRN (01:15)
[2019-09-14 01:21] VITALS: BMI 40.9
[2019-09-14] MEDS ORDERED: PROVENTIL INHALER 6.7 G (200 INHALATIONS) INH PRN (01:52)
[2019-09-14] MEDS ORDERED: ALPRAZolam 1 MG TAB PO PRN (01:52)
[2019-09-14 02:05] LABS: Troponin I Less than 0.010 ng/mL (< 0.028)
[2019-09-14] MEDS: HYDROcodone/Acetaminophen 10/325 mg Tablet PO PRN ×2 (02:08→13:06)
[2019-09-14 05:35] LABS: Cardiac Risk 5.8 (Less than 4.5); Cholesterol 184 mg/dl (< 200 Desired); HDL Cholesterol 32 mg/dL (>60 Neg Risk); Triglycerides 468 mg/dL (Less than 150)
[2019-09-14 05:41] LABS: Troponin I Less than 0.010 ng/mL (< 0.028)
[2019-09-14] MEDS ORDERED: Potassium Chloride 20 MEQ TAB PO SCH (07:00)
[2019-09-14] MEDS ORDERED: Enoxaparin Sodium 40 MG/0.4 ML SYRINGE SC SCH (09:00)
[2019-09-14] MEDS ORDERED: Amoxicillin/Potassium Clav 875 MG TAB PO SCH (09:00)
--- NOTE | 2019-09-14 10:58 | NM ---
EXAM: NM Cardiac Stress W EF WF PROVIDED CLINICAL HISTORY: Chest pain COMPARISON: None RADIOPHARMACEUTICAL: 30 millicuries technetium 99m labeled sestamibi IV stress FINDINGS: There is normal, homogeneous distribution of radiotracer throughout the left ventricular myocardium. Gated data demonstrate normal myocardial wall motion and thickening with calculated LVEF 77%. IMPRESSION: 1. No scintigraphic evidence for ischemia. 2. Calculated LVEF 77%.
[2019-09-14] MEDS ORDERED: Regadenoson 0.4 MG/5 ML SYRINGE ONE (11:26)
[2019-09-14 12:40] VITALS: BP 161/90; TEMP 97.7
[2019-09-14] MEDS ORDERED: Topiramate 100 MG TAB PO SCH (21:00)
[2019-09-14] MEDS ORDERED: Amlodipine 5 MG TAB PO SCH (21:00)
[2019-09-14] MEDS ORDERED: Montelukast Sodium 10 mg Tablet PO SCH (21:00)
[2019-09-14] MEDS ORDERED: Losartan 25 MG TAB PO SCH (21:00)
[2019-09-15] MEDS ORDERED: Aspirin 81 mg Enteric Coated Tablet PO SCH (09:00)
[2019-09-15] MEDS ORDERED: Fenofibrate Nanocrystallized 145 MG TAB PO SCH (09:00)
--- NOTE | 2019-09-16 15:39 | EKG ---
Test Reason : CP Blood Pressure : / mmHG Vent. Rate : 087 BPM Atrial Rate : 087 BPM P-R Int : 000 ms QRS Dur : 092 ms QT Int : 368 ms P-R-T Axes : 000 069 048 degrees QTc Int : 442 ms Sinus rhythm Incomplete right bundle branch block Confirmed by MAMI MUNOZ DO ([id number]), editor producer IAN RUFFIN ([id number]) on 09/16/2019 3:38:45 PM Referred By: Confirmed By:MAMI MUNOZ DO
--- NOTE | 2019-09-18 12:19 | DIS ---
DATE OF ADMISSION: 09/13/2019 DATE OF DISCHARGE: 09/14/2019 RESIDENT: Mukul Escobar MD ADMITTING ATTENDING: Yissel Cannon MD DISCHARGE ATTENDING: Yissel Cannon MD CONSULTS: None. PROCEDURE: 09/14/19 ECHO with EF of 55-60%, Mild MR & TR 09/14/19 Stress with EF of 77%, noraml findings PRIMARY DIAGNOSES: Atypical chest pain, Right otitis media. SECONDARY DIAGNOSES: Anxiety, hypertension, and chronic obstructive pulmonary disease. DISCHARGE MEDICATIONS: 1. Augmentin 875 BID for 5 days. 2. Aspirin 81 mg PO daily. 3. Fenofibrate 130 mg daily. HISTORY OF PRESENT ILLNESS: 54yo female presented to the ED tonight w/ complaint of palpitations. Pt stated that about 1 hour [employer] she was sitting around doing nothing when she suddenly developed palpitations in her chest. She states that this progressed to the point that she was able to hear her heart beating in her ear. Pt states she started to become anxious and became very nauseated but did not vomit. She became very concerned so came to be evaluated. By the time she arrived pt states that her sx had essentially resolved. Pt notes having right sided ear pain intermittently for a week. She was evaluated 1 week ago in the ED but states that since then she felt a pop in her ear last week and it started draining fluid. She states the fluid has stopped but she continues to have intermittent pain. Pt is a smoker, obese, has positive fmhx of CAD, and pmhx of HTN, HLD. Pt believes she had a stress test done a little over a year - she thought maybe it was here but there is no records of this. When she was told there were no records she stated that she doesn't really remember where or when she had it done. 1. Atypical chest pain. * ACS versus anxiety. * Palpitations with associated nausea and shortness of breath. * Chest x-ray, EKG, and initial troponins were negative. * All troponins were negative. * Nuclear stress and echo as listed above. * Currently asymptomatic. * P.r.n. nitroglycerin. * HEART score of 5. * Discharged with aspirin and fenofibrate. Would benefit from a statin. She has taken atorvastatin in the past. * ASCVD risk is 8.5%. 2. Otitis media. * Erythematous right tympanic membrane with history of drainage. * Augmentin x5 days. 3. Anxiety. * Continue home sertraline and p.r.n. alprazolam. 4. Hypertension. * Continue home amlodipine and losartan. 5. COPD. * Continue home inhalers p.r.n. and Singulair. DISPOSITION: Stable. DISCHARGE INSTRUCTIONS: 1. Location: Home. 2. Diet: Heart healthy, low-sodium. 3. Activity: As tolerated. 4. Followup: Follow up with Dr. Gonzalez 7 days. Job ID: [id number] [facility]
== END 2019-09-14 14:24 | disposition home or self-care (01) ==
LOC: ERS 21:43 → 2SW 23:51
PROVIDERS: ADMIT Family Medicine; ATTEND Family Medicine
DX: R07.89 Other chest pain (principal); H66.91 Otitis media, unspecified, right ear; I10 Essential (primary) hypertension; E78.5 Hyperlipidemia, unspecified; F41.9 Anxiety disorder, unspecified; J44.9 Chronic obstructive pulmonary disease, unspecified; E66.01 Morbid (severe) obesity due to excess calories; Z68.41 Body mass index [BMI] 40.0-44.9, adult; Z79.82 Long term (current) use of aspirin; Z79.899 Other long term (current) drug therapy; Z88.8 Allergy status to other drugs, medicaments and biological substances
CPT/HCPCS: 71045; 78452; 80053; 80061; 82550; 83690; 83735; 83880; 84484 ×3; 85025; 85610; 85730; 93005; 93017; 93306; 94760 ×2; 99285; A9500; G0378 ×2; 36415; J2785

== ENCOUNTER 2019-12-29 10:56 | Emergency (ER) | payer MEDICARE, MEDICAID, OTHER ==
--- NOTE | 2019-12-29 11:47 | RAD ---
2 VIEW CHEST: Date: 12/29/2019 HISTORY: Cough. FINDINGS: Lungs appear clear of infiltrate. Heart and mediastinum unremarkable. Vasculature normal. Osseous str uctures unremarkable. Epidural leads are seen to the level of the mid thoracic spine. IMPRESSION: No acute lung infiltrate identified. POS: [facility]
== END 2019-12-29 12:00 | disposition home or self-care (01) ==
LOC: ERS 10:56
DX: J20.9 Acute bronchitis, unspecified (principal); E78.00 Pure hypercholesterolemia, unspecified; I10 Essential (primary) hypertension; J44.9 Chronic obstructive pulmonary disease, unspecified; F41.9 Anxiety disorder, unspecified; F31.9 Bipolar disorder, unspecified; F17.210 Nicotine dependence, cigarettes, uncomplicated
CPT/HCPCS: 71046; 99283; U0001

== ENCOUNTER 2020-06-29 09:06 | Outpatient (CLI) | payer MEDICARE, MEDICAID, OTHER ==
--- NOTE | 2020-06-29 09:49 | MMO ---
Bilateral MAMMO Bilat Screen [facility]. CLINICAL HISTORY: Patient is 54 years old and is seen for screening. The patient has the following family history of breast cancer: mother, at age 25, AT 40 and maternal aunt. The patient has no personal history of cancer. VIEWS: The views performed were: bilateral craniocaudal with tomosynthesis and bilateral mediolateral oblique with tomosynthesis. FILMS COMPARED: The present examination has been compared to prior imaging studies performed at [facility] on 10/04/2017 and 01/24/2019, and at [facility] on 09/27/2010. This study has been interpreted with the assistance of computer-aided detection. MAMMOGRAM FINDINGS: The breasts are almost entirely fat. Benign calcifications are noted bilaterally. There are no suspicious masses, suspicious calcifications, or new areas of architectural distortion. IMPRESSION: THERE IS NO MAMMOGRAPHIC EVIDENCE OF MALIGNANCY. A ROUTINE FOLLOW-UP MAMMOGRAM IN 1 YEAR IS RECOMMENDED. THE RESULTS OF THIS EXAM WERE SENT TO THE PATIENT. ACR BI-RADS Category 2 - Benign finding MAMMOGRAPHY NOTE: 1. A negative mammogram report should not delay a biopsy if a dominant of clinically suspicious mass is present. 2. Approximately 10% to 15% of breast cancers are not detected by mammography. 3. Adenosis and dense breasts may obscure an underlying neoplasm. Reported by: MARCELO SNEED MD Electonically Signed: [id number]
== END 2020-06-29 09:07 | disposition home or self-care (01) ==
LOC: BICMAMMO 09:06
PROVIDERS: ATTEND Family Medicine
DX: Z12.31 Encounter for screening mammogram for malignant neoplasm of breast (principal); Z80.3 Family history of malignant neoplasm of breast
CPT/HCPCS: 77063; 77067

== ENCOUNTER 2020-09-21 17:02 | Emergency (ER) | payer MEDICARE, MEDICAID | END 2020-09-21 22:24 | disposition left against medical advice (07) | LOC: ERS 17:02 | DX: Z53.21 Procedure and treatment not carried out due to patient leaving prior to being seen by health care provider (principal) ==

== ENCOUNTER 2021-01-11 18:04 | Emergency (ER) | payer MEDICARE, MEDICAID | END 2021-01-11 19:36 | LOC: ERS 18:04 | DX: Z53.21 Procedure and treatment not carried out due to patient leaving prior to being seen by health care provider (principal) ==

== ENCOUNTER 2022-10-18 14:05 | Outpatient (CLI) | payer OTHER, MEDICAID | END 2022-10-18 14:06 | disposition home or self-care (01) | LOC: BICMAMMO 14:05 | PROVIDERS: ATTEND Family Medicine | DX: Z12.31 Encounter for screening mammogram for malignant neoplasm of breast (principal); Z80.3 Family history of malignant neoplasm of breast | CPT/HCPCS: 77063; 77067 ==

== ENCOUNTER 2023-03-06 17:30 | Outpatient (CLI) | payer OTHER, MEDICAID | END 2023-03-06 17:31 | disposition home or self-care (01) | LOC: SLEEPLAB 17:30 | PROVIDERS: ATTEND Family Medicine | DX: G47.33 Obstructive sleep apnea (adult) (pediatric) (principal); R51.9 Headache, unspecified; J44.9 Chronic obstructive pulmonary disease, unspecified; I10 Essential (primary) hypertension; F41.9 Anxiety disorder, unspecified; E66.9 Obesity, unspecified; R06.83 Snoring | CPT/HCPCS: 95800 ==

== ENCOUNTER 2023-12-14 13:10 | Outpatient (CLI) | payer OTHER | END 2023-12-14 13:11 | disposition home or self-care (01) | LOC: BICRAD 13:10 | PROVIDERS: ATTEND Student in an Organized Health Care Education/Training Program | DX: J44.1 Chronic obstructive pulmonary disease with (acute) exacerbation (principal) | CPT/HCPCS: 71046 ==

== ENCOUNTER 2024-02-14 15:15 | Emergency (ER) | payer OTHER, MEDICAID ==
[2024-02-14 15:46] LABS: Bacteria/HPF None Seen HPF (None Seen); Bilirubin Negative (Negative); Blood, Urine Negative (Negative); CAUTI Indications for Culture Alt mental st,lethar; Clarity Clear (Clear); Glucose, Urine (Dipstick) Normal (Negative); Ketone, Urine Negative (Negative); Leukocyte Negative Leu/uL (Negative); Nitrite Negative (Negative); Protein, Urine (Dipstick) Negative (Neg-Trace); RBC/HPF 0-3 HPF (0-3); Squamous Epithelial 0-3 HPF (0-3); Urobilinogen Normal mg/dL (Less than 2); WBC/HPF 0-3 HPF (0-3); pH, Urine 6.5 (5.0-9.0)
[2024-02-14 15:48] LABS: Urine Culture Reflex No No
[2024-02-14 16:19] LABS: Troponin I Less than 0.010 ng/mL (< 0.028)
[2024-02-14 16:29] LABS: #Basophils 0.04 10x3/uL (0.0-0.2); %Basophils 0.8 % (0.0-1.0); %Eosinophils 2.3 % (0.0-10.0); %Lymphocytes 28.6 % (21.0-51.0); %Monocytes 9.7 % (0.0-10.0); %Neutrophils 58.4 % (42.0-75.0); Hematocrit 40.9 % (36.0-47.0); Hemoglobin 14.3 g/dL (12.0-16.0); Mean Corpuscular Hemoglobin 31.8 pg (27.0-31.0); Mean Corpuscular Volume 91.1 fL (78.0-98.0); Mean Platelet Volume 9.8 fL (7.4-10.4); Platelet Count 175 10x3/uL (130-400); RBC Distribution Width 12.3 % (11.5-14.5); Red Blood Cell (RBC) Count 4.49 mill/uL (4.20-5.40)
[2024-02-14 16:59] LABS: ALT (SGPT) 26 U/L (8-55); AST (SGOT) 19 U/L (5-34); Acetaminophen Less than 10 mcg/mL (10.0-30.0); Alcohol Less than 10.0 mg/dL (Less than 10); Alkaline Phosphatase 55 U/L (40-110); Anion Gap 12 mmol/L (10-20); BUN (Urea Nitrogen) 17 mg/dL (9.8-20.1); Bilirubin, Total 0.7 mg/dL (0.2-1.2); Calc. Creatinine Clearance 0 mL/min (70-130); Calcium 9.8 mg/dL (7.8-10.44); Carbon Dioxide 26 mmol/L (22-29); Chloride 104 mmol/L (98-107); Estimated GFR 60; Globulin 2.8 g/dL (2.4-3.5); Glucose 134 mg/dL (70-105); Potassium 4.1 mmol/L (3.5-5.1); Protein, Total 6.8 g/dL (6.0-8.3); Salicylate Less than 8.0 mg/dL (15.0-30.0); Sodium 138 mmol/L (136-145)
[2024-02-14 18:42] LABS: Amphetamine Not Detected (NotDetected); Barbiturates Screen Not Detected (NotDetected); Benzodiazepine Screen Not Detected (NotDetected); Cocaine Metabolite Screen Not Detected (NotDetected); Methadone Not Detected (NotDetected); Methamphetamine Not Detected (NotDetected); Opiate Screen Detected (NotDetected); Oxycodone Screen Detected (NotDetected); Phencyclidine (PCP) Not Detected (NotDetected); THC/Cannabinoid Screen Not Detected (NotDetected); Tricyclic Screen Not Detected (NotDetected)
== END 2024-02-14 18:08 | disposition home or self-care (01) ==
LOC: ERS 15:15
DX: R42 Dizziness and giddiness (principal); R53.1 Weakness; F17.210 Nicotine dependence, cigarettes, uncomplicated; J44.9 Chronic obstructive pulmonary disease, unspecified; I10 Essential (primary) hypertension
CPT/HCPCS: 36415; 80053; 80306; 80307; 81001; 84484; 85025; 93005

== ENCOUNTER 2024-02-27 08:30 | Outpatient (CLI) | payer MEDICAID, OTHER | END 2024-02-27 08:31 | disposition home or self-care (01) | LOC: BICULT 08:30 | PROVIDERS: ATTEND Family Medicine | DX: R22.1 Localized swelling, mass and lump, neck (principal); R13.10 Dysphagia, unspecified | CPT/HCPCS: 76536 ==

== ENCOUNTER 2024-03-11 08:05 | Outpatient (CLI) | payer OTHER ==
[2024-03-11] MEDS ORDERED: Iopamidol 370 76% 100 ML VIAL ONE (08:58)
== END 2024-03-11 08:06 | disposition home or self-care (01) ==
LOC: BICCT 08:05
PROVIDERS: ATTEND Family Medicine
DX: R22.1 Localized swelling, mass and lump, neck (principal); R13.10 Dysphagia, unspecified; K43.9 Ventral hernia without obstruction or gangrene; R91.1 Solitary pulmonary nodule
CPT/HCPCS: 71260

== ENCOUNTER 2024-04-14 09:32 | Emergency (ER) | payer OTHER | END 2024-04-14 12:29 | disposition home or self-care (01) | LOC: ERS 09:32 | DX: I10 Essential (primary) hypertension (principal); E78.5 Hyperlipidemia, unspecified; J44.9 Chronic obstructive pulmonary disease, unspecified; Z79.82 Long term (current) use of aspirin; Z79.899 Other long term (current) drug therapy; F17.210 Nicotine dependence, cigarettes, uncomplicated | CPT/HCPCS: 99283 ==

== ENCOUNTER 2024-06-16 08:02 | Outpatient (CLI) | payer OTHER | END 2024-06-16 08:03 | disposition home or self-care (01) | LOC: RAD 08:02 | PROVIDERS: ATTEND Internal Medicine | DX: R06.00 Dyspnea, unspecified (principal) | CPT/HCPCS: 71046 ==

== ENCOUNTER 2024-06-17 21:13 | Emergency (ER) | payer OTHER ==
[~2024-06-17 21:13] MED LIST changes: -ISOVUE-370 76%-LOCM 1 ML ONE; +Iopamidol-370 76% 500 ML MDV (1 ML CHARGE) ONE
[2024-06-17 22:30] LABS: #Basophils 0.05 10x3/uL (0.0-0.2); %Basophils 0.8 % (0.0-1.0); %Eosinophils 2.1 % (0.0-10.0); %Lymphocytes 28.7 % (21.0-51.0); %Monocytes 8.6 % (0.0-10.0); %Neutrophils 59.5 % (42.0-75.0); Hematocrit 39.4 % (36.0-47.0); Hemoglobin 13.8 g/dL (12.0-16.0); Mean Corpuscular Hemoglobin 32.1 pg (27.0-31.0); Mean Corpuscular Volume 91.6 fL (78.0-98.0); Mean Platelet Volume 9.6 fL (7.4-10.4); Platelet Count 210 10x3/uL (130-400); RBC Distribution Width 12.5 % (11.5-14.5)
[2024-06-17 22:48] LABS: Troponin I Less than 0.010 ng/mL (< 0.028)
[2024-06-17 22:55] LABS: ALT (SGPT) 27 U/L (8-55); AST (SGOT) 19 U/L (5-34); Albumin 4.1 g/dL (3.5-5.0); Alkaline Phosphatase 58 U/L (40-110); Anion Gap 15 mmol/L (10-20); BUN (Urea Nitrogen) 18 mg/dL (9.8-20.1); Bilirubin, Total 0.5 mg/dL (0.2-1.2); Calc. Creatinine Clearance 0 mL/min (70-130); Calcium 10.1 mg/dL (7.8-10.44); Carbon Dioxide 24 mmol/L (22-29); Chloride 103 mmol/L (98-107); Estimated GFR 60; Globulin 2.9 g/dL (2.4-3.5); Glucose 113 mg/dL (70-105); Potassium 4.2 mmol/L (3.5-5.1); Sodium 138 mmol/L (136-145)
[2024-06-18 00:35] LABS: Magnesium 1.8 mg/dL (1.6-2.6)
== END 2024-06-18 01:58 | disposition home or self-care (01) ==
LOC: ERS 21:13
DX: R06.00 Dyspnea, unspecified (principal); I10 Essential (primary) hypertension; F17.200 Nicotine dependence, unspecified, uncomplicated; Z79.82 Long term (current) use of aspirin
CPT/HCPCS: 71045; 71275; 80053; 83735; 83880; 84484; 85025; 93005

== ENCOUNTER 2024-08-08 12:05 | Outpatient (CLI) | payer OTHER ==
[2024-08-08 12:42] LABS: #Basophils 0.05 10x3/uL (0.0-0.2); %Basophils 1.1 % (0.0-1.0); %Eosinophils 3.1 % (0.0-10.0); %Lymphocytes 29.4 % (21.0-51.0); %Monocytes 9.2 % (0.0-10.0); %Neutrophils 56.5 % (42.0-75.0); Hematocrit 44.2 % (36.0-47.0); Hemoglobin 14.9 g/dL (12.0-16.0); Mean Corpuscular HGB CONC 33.7 g/dL (32.0-36.0); Mean Corpuscular Hemoglobin 31.6 pg (27.0-31.0); Mean Corpuscular Volume 93.6 fL (78.0-98.0); Mean Platelet Volume 9.3 fL (7.4-10.4); Platelet Count 197 10x3/uL (130-400); RBC Distribution Width 12.5 % (11.5-14.5); Red Blood Cell (RBC) Count 4.72 mill/uL (4.20-5.40)
[2024-08-08 13:07] LABS: Anion Gap 14 mmol/L (10-20); BUN (Urea Nitrogen) 15 mg/dL (9.8-20.1); Calc. Creatinine Clearance 0 mL/min (70-130); Calcium 9.5 mg/dL (7.8-10.44); Carbon Dioxide 24 mmol/L (22-29); Chloride 101 mmol/L (98-107); Estimated GFR 83; Glucose 176 mg/dL (70-105); Potassium 4.3 mmol/L (3.5-5.1); Sodium 135 mmol/L (136-145)
== END 2024-08-08 12:06 | disposition home or self-care (01) ==
LOC: LABBT 12:05
PROVIDERS: ATTEND Internal Medicine Cardiovascular Disease
DX: Z01.812 Encounter for preprocedural laboratory examination (principal); R06.02 Shortness of breath
CPT/HCPCS: 80048; 85025

== ENCOUNTER 2024-08-12 05:52 | Day surgery (SDC) | payer OTHER, MEDICAID ==
[2024-08-08 12:23] VITALS: BMI 39.9
[2024-08-12] MEDS ORDERED: Heparin 10,000 UNITS/ 10 ML VIAL ONE (06:18)
[2024-08-12] MEDS ORDERED: fentaNYL 50 mcg/mL 1 mL Vial ONE ×3 (06:18→09:51)
[2024-08-12] MEDS ORDERED: Midazolam HCl 2 mg/2 ml Vial ONE (06:18)
[2024-08-12] MEDS ORDERED: Verapamil 5 MG/2 ML VIAL ONE (06:18)
[2024-08-12] MEDS ORDERED: Nitroglycerin 50 MG/250 ML BOT 250 ML ONE (06:19)
[2024-08-12] MEDS ORDERED: Ipratropium/Albuterol 3 ML NEB ONE (06:51)
== END 2024-08-12 11:42 | disposition home or self-care (01) ==
LOC: CCL 05:52
PROVIDERS: ATTEND Internal Medicine Cardiovascular Disease
PROC: 4A023N7 Measurement of Cardiac Sampling and Pressure, Left Heart, Percutaneous Approach (ICD-10-PCS; principal; 2024-08-12)
DX: J44.9 Chronic obstructive pulmonary disease, unspecified (principal); I10 Essential (primary) hypertension; E78.5 Hyperlipidemia, unspecified; F41.9 Anxiety disorder, unspecified; F32.A Depression, unspecified; F17.200 Nicotine dependence, unspecified, uncomplicated; Z98.51 Tubal ligation status; Z90.49 Acquired absence of other specified parts of digestive tract; Z86.73 Personal history of transient ischemic attack (TIA), and cerebral infarction without residual deficits; Z88.8 Allergy status to other drugs, medicaments and biological substances; Z79.84 Long term (current) use of oral hypoglycemic drugs; Z79.82 Long term (current) use of aspirin; Z79.899 Other long term (current) drug therapy
CPT/HCPCS: 93458; C1769; C1887; C1894; J1644; J2250; J3010; 99152; 99153; J7620

== ENCOUNTER 2025-05-12 13:04 | Outpatient (CLI) | payer OTHER, MEDICAID | END 2025-05-12 13:05 | disposition home or self-care (01) | LOC: BICMAMMO 13:04 | PROVIDERS: ATTEND Family Medicine | DX: Z12.31 Encounter for screening mammogram for malignant neoplasm of breast (principal); Z80.3 Family history of malignant neoplasm of breast | CPT/HCPCS: 77063; 77067 ==

== ENCOUNTER 2025-06-08 09:23 | Outpatient (CLI) | payer OTHER, MEDICAID | END 2025-06-08 09:24 | disposition home or self-care (01) | LOC: BICCT 09:23 | PROVIDERS: ATTEND Internal Medicine | DX: Z12.2 Encounter for screening for malignant neoplasm of respiratory organs (principal); F17.218 Nicotine dependence, cigarettes, with other nicotine-induced disorders | CPT/HCPCS: 71271 ==